=== PATIENT | female | born 1985 | race Caucasian/White ===

== ENCOUNTER 2023-08-17 01:51 | Emergency (ER) | payer MEDICAID, SELFPAY ==
[2023-08-17 01:51] VITALS: BP 148/70; PULSE 62; RESP 18; TEMP 36.2; O2SAT 97; BMI 30.3
--- NOTE | 2023-08-17 02:11 | ED.RN ---
PATIENT GIVEN A FROI AFTER SHE STATED THAT I THINK THE INJURY HAPPENED AT WORK, BUT I AM NOT SURE BECAUSE I WAS ALSO A LITTLE SORE FROM THE DAY BEFORE. SHE WAS INFORMED THAT SHE HAS THE CHOICE TO FILL OUT THE FORM IF SHE CHOOSES AND SHE CAN WAIT TO MAKE THE DECISION UNTIL LATER IN THE HOSPITAL VISIT.
--- NOTE | 2023-08-17 02:18 | EDS_ITS ---
HPI History of Present Illness Chief Complaint: Lower Extremity Injury Informant: patient Narrative Narrative: Patient believes she hurt her left knee at work 4 days ago. 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 She states she remembered her left knee hurting suddenly at 1 point but does not know what exactly she did to it. She did not fall onto it or anything direct or obvious, she thinks she may have twisted it but is not exactly sure. Ever since then it hurts to walk on and move. She was seen at urgent care couple days ago and had x-rays that she states were normal, and they placed her on prednisone which she has had 2 days worth. She states she has young children at home that she is always chasing around and she is wondering why the swelling and pain are worse now despite the prednisone. She denies any systemic symptoms otherwise her distal edema, just swelling at the site of the pain. PFSH PFS Medical History no medical history Home Medications ?Medication ?Instructions ?Recorded ?Last Taken ?Type NK 08/17/23 Unknown History Allergy/AdvReac Type Severity Reaction Status Date / Time Penicillins (PCN) Allergy PT UNSURE Verified 08/17/23 01:51 OF REACTION Surgical History no surgical history Social History Smoking Status: Never smoker ROS ROS ED Constitutional Constitutional ED: Denies chills or fever(s) Musculoskeletal Musculoskeletal: Reports extremity pain; Denies neck pain Integumentary Denies Abrasions, rash or wounds Neurologic Neurologic: Denies paresthesias or weakness EXAM Physical Exam Const Vital Signs: 08/17/23 01:51 Temperature 97.1 F L Temperature Source Temporal Pulse Rate 62 Respiratory Rate 18 Blood Pressure 148/70 H Blood Pressure Mean 96 Pulse Ox 97 Positive well nourished and well developed General Appearance ED: well developed and NAD Neck full ROM and supple Back/Spine normal ROM and normal to inspection Extremity full ROM Extremity Narrative: Left lower extremity: Pain, tenderness, mild swelling without overlying skin abnormalities or rash or color change/erythema at the proximal aspect anteromedial tibia. Tibial tuberosity is not involved or tender. Extensor mechanism of the knee is intact there is no effusion. She has full range of motion of the knee. All ligaments are stable with short endpoints and no significant discomfort or reproduction of her pain on stressing. Negative anterior and posterior drawer signs. Neurovascular intact distally without edema. No palpable cords or calf tenderness. Neuro oriented x3, no focal motor deficits and no sensory deficits noted Sensorium / Orientation: alert Psych mental status grossly normal and thought process normal Skin no wounds Rashes: no rashes MDM MDM MDM Narrative Medical decision making narrative: I offered repeat x-rays patient does not want that and states she already has a report showing that the ones she had were normal. My clinical diagnosis is that she likely has Pes anserine bursitis, the location is consistent with this. I do not think she needs studied for DVT. I advised her that although prednisone is an anti-inflammatory and oftentimes will help inflamed conditions like this, it may not if she is continuing to exert injury to the affected structure which will continue the inflammation. She is given an Paco wrap, advised that she can continue using the prednisone as prescribed now that she has started it, and may do topical Voltaren on the affected area if desired, ice to the affected area, and follow-up with [facility]. She was given appropriate work restrictions as well, with regards to amount of weight lifting, and limitation of repetitive movements of her left knee. Discharge Plan Triage Chief Complaint: Lower Extremity Injury ED Provider: Ciro Velazco Dx/Rx/DC Orders Clinical Impression: Anserine bursitis Instructions: ED Bursitis Prescriptions: No Action NK Stand Alone Forms: Work Status Form Primary Care Provider: Care Physician,No Primary [facility]: [facility] [Group of Physicians] - As soon as possible Print Language: Montserratian Disposition Disposition: Home, Self Care
[2023-08-17 02:20] VITALS: BP 132/70; PULSE 67; RESP 18; TEMP 36.6; O2SAT 98
== END 2023-08-17 02:31 | disposition home or self-care (01) ==
PROVIDERS: Emergency Provider Emergency Medicine; Visit Provider Emergency Medicine
DX: M70.51 Other bursitis of knee, right knee (principal)
CPT/HCPCS: 99282